=== PATIENT | male | born 1980 | race Two or more races ===

== ENCOUNTER 2017-07-09 19:05 | Emergency (ER) | payer SELFPAY ==
[~2017-07-09] VITALS: Ht 167.6 cm; Wt 104.3 kg
[2017-07-09 20:38] LABS: Alcohol, Urine < 3.0 mg/dL (0-5); Amphetamine Screen, Urine NEGATIVE (NEGATIVE); Barbiturate Scree,Urine NEGATIVE (NEGATIVE); Benzodiazephine Screen, Urine NEGATIVE (NEGATIVE); Cannabinoid Screen, Urine POSITIVE (NEGATIVE); Cocaine Screen, Urine NEGATIVE (NEGATIVE); Opiate Scree,Urine NEGATIVE (NEGATIVE); Phencyclidine Screen, Urine NEGATIVE (NEGATIVE); Urine Bacteria NONE SEEN /hpf (None Seen); Urine Blood Negative /uL (Negative); Urine Mucus FEW (None Seen); Urine Specific Gravity 1.025 (1.001-1.035); Urine WBC <1 /hpf (0 - 3)
[2017-07-09 20:40] LABS: Basophils # (auto) 0.1 uL; Basophils % (auto) 0.7 % (0.0-2.0); Eosinophils # (auto) 0.1 uL; Eosinophils % (auto) 0.7 % (0.0-7.0); Hematocrit 44.5 % (41.0-53.0); Lymphocytes # (auto) 1.9 uL; Lymphocytes % (auto) 22.9 % (10.0-50.0); Mean Corpuscular Hemoglobin 30.8 pg (28.0-32.0); Mean Corpuscular Hgb Conc. 33.8 g/dL (32.0-36.0); Monocytes # (auto) 0.7 uL; Monocytes % (auto) 8.4 % (0.0-12.0); Neutrophils # (auto) 5.7 uL; Neutrophils % (auto) 67.3 % (37.0-80.0); Nucleated Red Blood Cells % 0.1 %; Platelet Count (auto) 197 10^3/uL (140-450); Red Blood Cells 4.89 10^6/uL (4.5-5.90); Red Cell Distribution Width 13.4 % (11.8-14.3); White Blood Cell 8.5 10^3/uL (4.4-10.8)
[2017-07-09 20:55] LABS: Albumin 4.4 g/dL (3.4-5.0); BUN/Creatinine Ratio 6.5; Calcium 9.4 mg/dL (8.5-10.1); Potassium 3.8 mmol/L (3.5-5.1)
[2017-07-09 20:58] LABS: Total Protein 8.5 g/dL (6.4-8.2)
[2017-07-10 03:51] VITALS: BP 142/85
[2017-07-10] MEDS ORDERED: SODIUM CHLORIDE 0.9% 1,000 ML IV ONE (04:30)
[2017-07-10] MEDS ORDERED: cefTRIAXone 1GM/10ml IVPUSH 10 ML IV ONE (04:30)
== END 2017-07-10 05:46 | disposition home or self-care (01) ==
LOC: ER 19:05
DX: F41.9 Anxiety disorder, unspecified (principal); E86.0 Dehydration; J06.9 Acute upper respiratory infection, unspecified
CPT/HCPCS: 36415; 71045; 80053; 80307; 81001; 85025; 96361; 96374; 99285; J7030; 93005

== ENCOUNTER 2020-11-08 18:25 | Emergency (ER) | payer MEDICAID ==
[~2020-11-08] VITALS: Ht 170.2 cm; Wt 108.9 kg
[2020-11-08] MEDS ORDERED: ALPRAZolam 0.5 MG TAB PO ONE (19:00)
[2020-11-08 19:09] LABS: Basophils # (auto) 0 10 ^3/uL (0-0.2); Basophils % (auto) 0.6 % (0.0-2.0); Eosinophils # (auto) 0.1 10 ^3/uL (0-0.8); Eosinophils % (auto) 0.9 % (0.0-7.0); Hematocrit 42.3 % (41.0-53.0); Hemoglobin 15.1 g/dL (13.5-17.5); Lymphocytes # (auto) 1.4 10 ^3/uL (0.4-5.4); Lymphocytes % (auto) 20.6 % (10.0-50.0); Mean Corpuscular Hemoglobin 32.9 pg (28.0-32.0); Mean Corpuscular Hgb Conc. 35.6 g/dL (32.0-36.0); Mean Corpuscular Volume 92.4 fL (80.0-100.0); Monocytes # (auto) 0.4 10 ^3/uL (0-1.3); Monocytes % (auto) 5.5 % (0.0-12.0); Neutrophils # (auto) 5.1 10 ^3/uL (1.6-8.6); Neutrophils % (auto) 72.4 % (37.0-80.0); Nucleated Red Blood Cells % 0.2 %; Platelet Count (auto) 226 10^3/uL (140-450); Red Blood Cells 4.58 10^6/uL (4.5-5.90); Red Cell Distribution Width 13.6 % (11.8-14.3)
[2020-11-08 19:26] LABS: Albumin 4.3 g/dL (3.4-5.0); Anion Gap 10 (5-15); Blood Urea Nitrogen 6 mg/dL (7-18); Calcium 8.9 mg/dL (8.5-10.1); Carbon Dioxide 24 mmol/L (21-32); Chloride 105 mmol/L (98-107); Glucose 87 mg/dL (74-106); Potassium 3.8 mmol/L (3.5-5.1); Sodium 139 mmol/L (136-145)
[2020-11-08 19:32] LABS: Alanine Aminotransferase 125 U/L (16-61); Alkaline Phosphatase 91 U/L (45-117); Aspartate Aminotransferase 123 U/L (15-37); BUN/Creatinine Ratio 8.6; Bilirubin, Total 0.8 mg/dL (0.2-1.0); GFR African American 162 mL/min; GFR Non-African American 134 mL/min; Total Protein 7.9 g/dL (6.4-8.2)
[2020-11-08 22:08] VITALS: BP 166/81
== END 2020-11-08 22:23 | disposition home or self-care (01) ==
LOC: ER 18:26
DX: F41.0 Panic disorder [episodic paroxysmal anxiety] (principal)
CPT/HCPCS: 36415; 71045; 80053; 82140; 84484; 85025; 93005